=== PATIENT | female | born 1985 | race African-American/Black ===

== ENCOUNTER 2018-03-17 10:49 | Emergency (ER) | payer MEDICARE, MEDICAID ==
[~2018-03-17] VITALS: Ht 167.6 cm; Wt 114.0 kg
[~2018-03-17 10:49] MED LIST: AMLO5TAB4 PO; B6/F1TAB; FERR134T2; GEODON; HYDR-519 PO; TRAM50TA; TRAMADOL; ZIPR20CA2
[2018-03-17] MEDS ORDERED: AZITHROMYCIN 500 MG TABLET PO ONE (11:30)
[2018-03-17] MEDS ORDERED: CEFTRIAXONE SODIUM 250 MG/VIAL IM ONE (11:30)
[2018-03-17] MEDS ORDERED: LIDOCAINE HCL 1% 20ML VIAL (Pyxis) INJ INFIL ONE (11:30)
[2018-03-17] MEDS ORDERED: HYDROCODONE/ACETAMINOPHEN 5/325MG TABLET PO ONE (11:30)
[2018-03-17] MEDS ORDERED: LIDOCAINE HCL/PF 1% 10 MG/ML 5ML VIAL IJ ONE (12:00)
[2018-03-17 12:04] VITALS: BP 115/58
== END 2018-03-17 12:05 | disposition home or self-care (01) ==
LOC: ER 11:31
DX: A64 Unspecified sexually transmitted disease (principal); Z20.2 Contact with and (suspected) exposure to infections with a predominantly sexual mode of transmission; Z76.0 Encounter for issue of repeat prescription; G89.29 Other chronic pain; M54.9 Dorsalgia, unspecified; E66.9 Obesity, unspecified; Z88.0 Allergy status to penicillin; F31.9 Bipolar disorder, unspecified; Z98.51 Tubal ligation status
CPT/HCPCS: 96372; 99283; J0696; J3490

== ENCOUNTER 2018-03-20 22:03 | Emergency (ER) | payer MEDICARE, MEDICAID ==
[~2018-03-20] VITALS: Ht 167.6 cm; Wt 119.0 kg
[2018-03-20 23:35] LABS: CLARITY URINE CLEAR (CLEAR); COLOR URINE YELLOW (YELLOW); KETONES URINE NEGATIVE (NEGATIVE); LEUKOCYTE ESTERASE URINE TRACE (NEGATIVE); NITRITE URINE NEGATIVE (NEGATIVE); OCCULT BLOOD URINE NEGATIVE (NEGATIVE); PROTEIN URINE NEGATIVE (NEGATIVE); SPECIFIC GRAVITY URINE 1.024 (1.005-1.030); UROBILINOGEN URINE 0.2 E.U./dL (0.2-1.0)
[2018-03-21] MEDS ORDERED: CYCLOBENZAPRINE 10MG TABLET PO ONE (01:45)
[2018-03-21] MEDS ORDERED: KETOROLAC 30MG/ML VIAL IM ONE (01:45)
[2018-03-21 02:43] VITALS: BP 124/78
== END 2018-03-21 02:45 | disposition home or self-care (01) ==
LOC: ER 22:03
DX: M54.5 Low back pain (principal); F17.200 Nicotine dependence, unspecified, uncomplicated; Z88.0 Allergy status to penicillin
CPT/HCPCS: 81003; 81025; 96372; 99283; J1885

== ENCOUNTER 2019-01-13 15:47 | Emergency (ER) | payer MEDICARE, MEDICAID ==
[~2019-01-13] VITALS: Ht 167.6 cm; Wt 128.0 kg
[2019-01-13 17:21] LABS: CLARITY URINE CLOUDY (CLEAR); COLOR URINE YELLOW (YELLOW); KETONES URINE NEGATIVE (NEGATIVE); LEUKOCYTE ESTERASE URINE 1+ (NEGATIVE); NITRITE URINE NEGATIVE (NEGATIVE); OCCULT BLOOD URINE NEGATIVE (NEGATIVE); PH URINE 6.5 (4.5-8.0); PROTEIN URINE NEGATIVE (NEGATIVE); SPECIFIC GRAVITY URINE 1.019 (1.005-1.030); UROBILINOGEN URINE 0.2 E.U./dL (0.2-1.0)
[2019-01-13] MEDS ORDERED: FLUCONAZOLE 100MG TABLET PO ONE (23:45)
[2019-01-13] MEDS ORDERED: CEFTRIAXONE SODIUM 250 MG/VIAL IM ONE (23:45)
[2019-01-13] MEDS ORDERED: MORPHINE SULFATE 4 MG/ML CPJ (NOT FOR IM USE) IV ONE (23:45)
[2019-01-13] MEDS ORDERED: AZITHROMYCIN 500 MG TABLET PO ONE (23:45)
[2019-01-13] MEDS ORDERED: KETOROLAC 60MG/2ML VIAL IM ONE (23:45)
[2019-01-14] MEDS ORDERED: ONDANSETRON HCL 4MG/2ML INJ IV STA (00:31)
[2019-01-14] MEDS ORDERED: SODIUM CHLORIDE 0.9% 1,000 ML IV ONE (00:31)
[2019-01-14] MEDS ORDERED: CEFTRIAXONE 1 G PREMIX 50 ML IV ONE (00:45)
[2019-01-14 01:17] LABS: BASOPHILS % 1.4 % (0.0-2.0); EOSINOPHILS % 3.5 % (0.0-5.0); HEMATOCRIT. 36.6 % (36.0-48.0); LYMPHOCYTES % 39.4 % (20.0-50.0); MEAN CORPUSCULAR HEMOGLOBIN 22.9 pg (28.0-32.0); MEAN PLATELET VOLUME 7.9 fl (7.4-10.4); MONOCYTES % 7.1 % (2.0-8.0); NEUTROPHILS % 48.6 % (40.0-76.0); PLATELET 274 x1000/uL (130-400); RED BLOOD CELL COUNT 5.23 mill/uL (4.2-5.4); RED CELL DISTRIBUTION WIDTH 16.8 % (11.6-14.6)
[2019-01-14 01:26] LABS: CHLORIDE 106 mEq/L (98-107)
[2019-01-14] MEDS ORDERED: FLUCONAZOLE 150MG TABLET PO NR (02:00)
[2019-01-14 02:36] VITALS: BP 124/73
[2019-01-14 03:38] LABS: PLATELET ESTIMATE NORMAL
== END 2019-01-14 02:39 | disposition home or self-care (01) ==
LOC: ER 16:13
DX: N12 Tubulo-interstitial nephritis, not specified as acute or chronic (principal); F31.9 Bipolar disorder, unspecified; Z88.0 Allergy status to penicillin; Z98.51 Tubal ligation status
CPT/HCPCS: 36415; 80053; 81003; 81025; 83690; 85025; 96365; 96372; 96375; 99283; J0696; J1885; J2270; J2405; J7030

== ENCOUNTER 2024-07-24 16:50 | Emergency (ER) | payer MEDICAID, MEDICARE ==
[~2024-07-24] VITALS: Ht 167.6 cm; Wt 133.0 kg
[2024-07-24 16:53] VITALS: O2SAT 100
[2024-07-24 17:31] LABS: BASOPHILS % 0.6 % (0.0-2.0); EOSINOPHILS % 4.4 % (0.0-5.0); HEMATOCRIT. 28.9 % (36.0-48.0); HEMOGLOBIN. 9.1 g/dL (12.0-16.0); LYMPHOCYTES % 32.1 % (20.0-50.0); MEAN CORPUSCULAR HEMOGLOBIN 18.5 pg (28.0-32.0); MEAN CORPUSCULAR HGB CONC 31.3 g/dL (31.0-37.0); MEAN PLATELET VOLUME 8.6 fl (7.4-10.4); MONOCYTES % 7.1 % (2.0-8.0); NEUTROPHILS % 55.8 % (40.0-76.0); PLATELET 273 x1000/uL (130-400); WHITE BLOOD COUNT 8.6 x1000/uL (4.5-11.0)
[2024-07-24 17:38] LABS: CHLORIDE 107 mEq/L (98-107); POTASSIUM 3.8 mEq/L (3.5-5.1); SODIUM 137 mEq/L (136-145)
[2024-07-24 17:39] LABS: CARBON DIOXIDE 26 mEq/L (21-32)
[2024-07-24 17:44] LABS: CREATININE 0.9 mg/dL (0.6-1.0); GLUCOSE 94 mg/dL (70-105); UREA NITROGEN BLOOD 11 mg/dL (9-23)
[2024-07-24 17:45] LABS: DIFFERENTIAL COMMENT 1
[2024-07-24 17:46] LABS: ADD RBC MORPHOLOGY YES; ALANINE AMINOTRANSFERASE < 7 IU/L (10-49); ASPARTATE AMINOTRANSFERASE 11 IU/L (<34)
[2024-07-24 17:47] LABS: BILIRUBIN TOTAL 0.2 mg/dL (0.1-1.0); PROTEIN TOTAL 6.9 g/dL (6.0-8.3)
[2024-07-24] MEDS: KETOROLAC 30MG/ML VIAL IM ONE (18:16)
[2024-07-24] MEDS: ACETAMINOPHEN 325MG TABLET PO ONE (18:16)
[2024-07-24 18:33] LABS: BILIRUBIN DIRECT < 0.1 mg/dL (<=3.0); CLARITY URINE CLOUDY (CLEAR); COLOR URINE YELLOW (YELLOW); GLUCOSE URINE NEGATIVE (NEGATIVE); KETONES URINE TRACE (NEGATIVE); LEUKOCYTE ESTERASE URINE 2+ (NEGATIVE); NITRITE URINE NEGATIVE (NEGATIVE); OCCULT BLOOD URINE NEGATIVE (NEGATIVE); PH URINE 6.5 (4.5-8.0); PROTEIN URINE NEGATIVE (NEGATIVE); SPECIFIC GRAVITY URINE 1.021 (1.005-1.030); UROBILINOGEN URINE 0.2 E.U./dL (0.2-1.0)
[2024-07-24 18:40] LABS: UCG SCREEN NEGATIVE
[2024-07-24 18:41] LABS: UCG KIT LOT# 847686
[2024-07-24 18:46] LABS: BACTERIA URINE 2+; RBC URINE 0-2 /hpf (0-2); SQUAMOUS EPITHELIAL CELL URINE 2+ /lpf (RARE/1+)
[2024-07-24 19:07] LABS: MICROCYTOSIS 3+; PLATELET ESTIMATE NORMAL
[2024-07-24 19:08] LABS: ANISOCYTOSIS 2+; HYPOCHROMASIA 2+; OVALOCYTES 1+; TARGET CELLS 1+
[2024-07-24] MEDS: NITROFURANTOIN 100MG M/M CAPSULE PO NR (20:02)
[2024-07-24] MEDS ORDERED: NITR-87 MT (21:57)
[2024-07-24 22:00] VITALS: BP 132/67; PULSE 84; RESP 17; TEMP 36.66960; O2SAT 100
[2024-07-24] MEDS ORDERED: CEPH500C2 MT (22:02)
[2024-07-24] MEDS: CEPHALEXIN 250MG CAPSULE PO ONE (22:20)
== END 2024-07-25 01:52 | disposition home or self-care (01) ==
LOC: ER 16:50
DX: N39.0 Urinary tract infection, site not specified (principal); F31.9 Bipolar disorder, unspecified; Z88.0 Allergy status to penicillin; Z79.899 Other long term (current) drug therapy; Z98.890 Other specified postprocedural states; Z98.51 Tubal ligation status
CPT/HCPCS: 99285; 74176; 80076; 80048; 81003; 81025; 83690; 85025; 86850; 86900; 86901; 36415; 93005; 96372; J1885

== ENCOUNTER 2025-01-09 22:28 | Emergency (ER) | payer MEDICAID, MEDICARE ==
[~2025-01-09] VITALS: Ht 170.2 cm; Wt 132.4 kg
[~2025-01-09 22:28] MED LIST changes: -AMLO5TAB4 PO; +AMLO5TAB5 PO; +CEPH500C2 MT
[2025-01-09 22:36] VITALS: O2SAT 100
[2025-01-09 22:58] LABS: BASOPHILS % 0.8 % (0.0-2.0); DIFFERENTIAL COMMENT 1; EOSINOPHILS % 4.4 % (0.0-5.0); HEMATOCRIT. 29.3 % (36.0-48.0); HEMOGLOBIN. 9.2 g/dL (12.0-16.0); LYMPHOCYTES % 33.2 % (20.0-50.0); MEAN CORPUSCULAR HEMOGLOBIN 17.9 pg (28.0-32.0); MEAN CORPUSCULAR HGB CONC 31.3 g/dL (31.0-37.0); MEAN CORPUSCULAR VOLUME 57.1 fL (81.0-99.0); MEAN PLATELET VOLUME 8.4 fl (7.4-10.4); MONOCYTES % 7.4 % (2.0-8.0); NEUTROPHILS % 54.2 % (40.0-76.0); PLATELET 290 x1000/uL (130-400); RED BLOOD CELL COUNT 5.12 mill/uL (4.2-5.4); RED CELL DISTRIBUTION WIDTH 22.2 % (11.6-14.6)
[2025-01-09 22:59] LABS: ADD RBC MORPHOLOGY YES
[2025-01-09 23:04] VITALS: TEMP 36.9; O2SAT 99
[2025-01-09 23:11] LABS: ANISOCYTOSIS 2+; PLATELET ESTIMATE NORMAL
[2025-01-09 23:13] LABS: HYPOCHROMASIA 1+; MICROCYTOSIS 3+
[2025-01-09 23:16] LABS: CARBON DIOXIDE 28 mEq/L (21-32); CHLORIDE 106 mEq/L (98-107); POTASSIUM 4.3 mEq/L (3.5-5.1); SODIUM 140 mEq/L (136-145)
[2025-01-09 23:17] LABS: CALCIUM 8.9 mg/dL (8.7-10.4)
[2025-01-09 23:21] LABS: CREATININE 0.9 mg/dL (0.6-1.0)
[2025-01-09 23:22] LABS: GLUCOSE 102 mg/dL (70-105); UREA NITROGEN BLOOD 12 mg/dL (9-23)
[2025-01-09 23:23] LABS: ALANINE AMINOTRANSFERASE 19 IU/L (10-49); ALBUMIN 3.7 g/dL (3.2-4.8); ASPARTATE AMINOTRANSFERASE 16 IU/L (<34)
[2025-01-09 23:24] LABS: BILIRUBIN DIRECT < 0.1 mg/dL (<=3.0); BILIRUBIN TOTAL 0.2 mg/dL (0.1-1.0); PROTEIN TOTAL 6.8 g/dL (6.0-8.3)
[2025-01-09 23:41] LABS: CLARITY URINE CLEAR (CLEAR); COLOR URINE DARK YELLOW (YELLOW); GLUCOSE URINE NEGATIVE (NEGATIVE); KETONES URINE NEGATIVE (NEGATIVE); LEUKOCYTE ESTERASE URINE 1+ (NEGATIVE); NITRITE URINE POSITIVE (NEGATIVE); OCCULT BLOOD URINE NEGATIVE (NEGATIVE); PROTEIN URINE NEGATIVE (NEGATIVE); SPECIFIC GRAVITY URINE 1.024 (1.005-1.030)
[2025-01-10 00:14] LABS: HCG SCREEN NEGATIVE
[2025-01-10 01:40] VITALS: BP 172/94; PULSE 74; RESP 16
[2025-01-10] MEDS: KETOROLAC 30MG/ML VIAL IM ONE (01:40)
[2025-01-10] MEDS: CEFTRIAXONE SODIUM 1G VIAL IM ONE (02:00)
[2025-01-10] MEDS ORDERED: LIDOCAINE HCL 1% 20ML VIAL INFIL ONE (02:00)
[2025-01-10 02:12] LABS: SQUAMOUS EPITHELIAL CELL URINE 1+ /lpf (RARE/1+)
[2025-01-10 02:13] LABS: RBC URINE 0-2 /hpf (0-2); WBC URINE 0-2 /hpf (0-2)
[2025-01-10 02:16] LABS: BACTERIA URINE 1+
[2025-01-10] MEDS ORDERED: IBUP-2028 MT (02:44)
[2025-01-10] MEDS ORDERED: CIPR-263 MT (02:44)
== END 2025-01-10 03:51 | disposition home or self-care (01) ==
LOC: ER 22:38
DX: N39.0 Urinary tract infection, site not specified (principal); R10.32 Left lower quadrant pain; Z79.899 Other long term (current) drug therapy; Z86.018 Personal history of other benign neoplasm; Z88.0 Allergy status to penicillin
CPT/HCPCS: 99285; 80076; 80048; 81003; 81025; 84703; 83690; 85025; 36415; 74176; 96372; J1885; J0696; J3490

== ENCOUNTER 2025-03-16 22:34 | Emergency (ER) | payer MEDICARE, MEDICAID ==
[~2025-03-16] VITALS: Ht 167.6 cm; Wt 134.0 kg
[~2025-03-16 22:34] MED LIST changes: +CIPR-263 MT; +IBUP-2028 MT
[2025-03-16 22:52] VITALS: O2SAT 99
[2025-03-16 23:18] LABS: BASOPHILS % 0.7 % (0.0-2.0); EOSINOPHILS % 3.8 % (0.0-5.0); HEMATOCRIT. 28.3 % (36.0-48.0); HEMOGLOBIN. 8.9 g/dL (12.0-16.0); MEAN CORPUSCULAR HEMOGLOBIN 17.8 pg (28.0-32.0); MEAN CORPUSCULAR HGB CONC 31.5 g/dL (31.0-37.0); MEAN CORPUSCULAR VOLUME 56.6 fL (81.0-99.0); MEAN PLATELET VOLUME 8.6 fl (7.4-10.4); NEUTROPHILS % 54.5 % (40.0-76.0); PLATELET 264 x1000/uL (130-400); RED CELL DISTRIBUTION WIDTH 22.1 % (11.6-14.6); WHITE BLOOD COUNT 7.7 x1000/uL (4.5-11.0)
[2025-03-16 23:27] LABS: CARBON DIOXIDE 30 mEq/L (21-32); CHLORIDE 101 mEq/L (98-107); POTASSIUM 3.5 mEq/L (3.5-5.1); SODIUM 138 mEq/L (136-145)
[2025-03-16 23:28] LABS: CALCIUM 9.3 mg/dL (8.7-10.4)
[2025-03-16 23:32] LABS: CREATININE 0.9 mg/dL (0.6-1.0)
[2025-03-16 23:33] LABS: GLUCOSE 105 mg/dL (70-105); UREA NITROGEN BLOOD 10 mg/dL (9-23)
[2025-03-16 23:34] LABS: ALANINE AMINOTRANSFERASE 117 IU/L (10-49); ALBUMIN 3.9 g/dL (3.2-4.8)
[2025-03-16 23:35] LABS: ASPARTATE AMINOTRANSFERASE 146 IU/L (<34); BILIRUBIN DIRECT < 0.1 mg/dL (<=3.0); BILIRUBIN TOTAL 0.2 mg/dL (0.1-1.0)
[2025-03-16 23:39] LABS: CLARITY URINE CLEAR (CLEAR); COLOR URINE YELLOW (YELLOW); GLUCOSE URINE NEGATIVE (NEGATIVE); KETONES URINE NEGATIVE (NEGATIVE); LEUKOCYTE ESTERASE URINE 1+ (NEGATIVE); NITRITE URINE NEGATIVE (NEGATIVE); OCCULT BLOOD URINE NEGATIVE (NEGATIVE); PH URINE >=9.0 (4.5-8.0); PROTEIN URINE NEGATIVE (NEGATIVE); SPECIFIC GRAVITY URINE 1.017 (1.005-1.030); UROBILINOGEN URINE 0.2 E.U./dL (0.2-1.0)
[2025-03-16 23:53] LABS: DIFFERENTIAL COMMENT 1
[2025-03-17 00:14] LABS: SQUAMOUS EPITHELIAL CELL URINE 2+ /lpf (RARE/1+)
[2025-03-17 00:16] LABS: BACTERIA URINE TRACE; RBC URINE 0-2 /hpf (0-2)
[2025-03-17] MEDS: ONDANSETRON 4MG ODT PO ONE (02:01)
[2025-03-17] MEDS: KETOROLAC 30MG/ML VIAL IM ONE (02:02)
[2025-03-17] MEDS: ACETAMINOPHEN 325MG TABLET PO ONE (02:02)
[2025-03-17] MEDS ORDERED: MAG-55 MT (02:14)
[2025-03-17 02:22] VITALS: BP 156/94; PULSE 86; RESP 20; TEMP 36.8; O2SAT 99
== END 2025-03-17 02:23 | disposition home or self-care (01) ==
LOC: ER 22:34
DX: R10.84 Generalized abdominal pain (principal); I10 Essential (primary) hypertension; F31.9 Bipolar disorder, unspecified; F41.9 Anxiety disorder, unspecified; Z79.899 Other long term (current) drug therapy; Z98.890 Other specified postprocedural states; Z88.0 Allergy status to penicillin
CPT/HCPCS: 99285; 80076; 80048; 81003; 81025; 83690; 85025; 36415; 74176; 96372; J1885; Q0162; 99284

== ENCOUNTER 2025-04-11 12:01 | Emergency (ER) | payer MEDICARE, MEDICAID ==
[~2025-04-11] VITALS: Ht 167.6 cm; Wt 135.0 kg
[~2025-04-11 12:01] MED LIST changes: +MAG-55 MT
[2025-04-11 12:07] VITALS: O2SAT 99
[2025-04-11 12:49] LABS: BASOPHILS % 0.7 % (0.0-2.0); EOSINOPHILS % 8.8 % (0.0-5.0); HEMATOCRIT. 28.6 % (36.0-48.0); HEMOGLOBIN. 9.1 g/dL (12.0-16.0); MEAN CORPUSCULAR HEMOGLOBIN 18.3 pg (28.0-32.0); MEAN CORPUSCULAR HGB CONC 31.9 g/dL (31.0-37.0); MEAN CORPUSCULAR VOLUME 57.3 fL (81.0-99.0); MEAN PLATELET VOLUME 8.6 fl (7.4-10.4); MONOCYTES % 8.9 % (2.0-8.0); NEUTROPHILS % 54.6 % (40.0-76.0); PLATELET 247 x1000/uL (130-400); RED BLOOD CELL COUNT 4.99 mill/uL (4.2-5.4); RED CELL DISTRIBUTION WIDTH 22.1 % (11.6-14.6); WHITE BLOOD COUNT 6.1 x1000/uL (4.5-11.0)
[2025-04-11 12:54] LABS: DIFFERENTIAL COMMENT 1
[2025-04-11 12:55] LABS: ADD RBC MORPHOLOGY YES
[2025-04-11 12:59] LABS: CARBON DIOXIDE 27 mEq/L (21-32); CHLORIDE 109 mEq/L (98-107); POTASSIUM 4.3 mEq/L (3.5-5.1); SODIUM 139 mEq/L (136-145)
[2025-04-11 13:04] LABS: CLARITY URINE CLOUDY (CLEAR); COLOR URINE YELLOW (YELLOW); GLUCOSE URINE NEGATIVE (NEGATIVE); KETONES URINE TRACE (NEGATIVE); LEUKOCYTE ESTERASE URINE 2+ (NEGATIVE); NITRITE URINE NEGATIVE (NEGATIVE); OCCULT BLOOD URINE NEGATIVE (NEGATIVE); PH URINE 7.5 (4.5-8.0); PROTEIN URINE 1+ (NEGATIVE); SPECIFIC GRAVITY URINE 1.023 (1.005-1.030)
[2025-04-11 13:05] LABS: ETHANOL BLOOD < 10 mg/dL (<10); GLUCOSE 101 mg/dL (70-105); UREA NITROGEN BLOOD 9 mg/dL (9-23)
[2025-04-11 13:06] LABS: AMMONIA < 17 uMol/L (<32); HCG SCREEN NEGATIVE
[2025-04-11 13:19] LABS: SQUAMOUS EPITHELIAL CELL URINE 2+ /lpf (RARE/1+)
[2025-04-11 13:20] LABS: BACTERIA URINE 2+
[2025-04-11 13:22] LABS: RBC URINE 0-2 /hpf (0-2)
[2025-04-11 13:29] LABS: ANISOCYTOSIS 2+; HYPOCHROMASIA 2+; MICROCYTOSIS 3+; PLATELET ESTIMATE NORMAL
[2025-04-11 13:44] LABS: TROPONIN I HIGH SENSITIVITY < 4 ng/L (3.0-34)
[2025-04-11 13:49] LABS: *AMPHETAMINES SCREEN URINE NEGATIVE (NEGATIVE); *BARBITURATES SCREEN URINE NEGATIVE (NEGATIVE); *BENZODIAZEPINES SCREEN URINE NEGATIVE (NEGATIVE); *COCAINE SCREEN URINE NEGATIVE (NEGATIVE); CANNABINOID URINE SCREEN PRESUMPTIVE POSITIVE (NEGATIVE); ECSTASY MDMA SCREEN URINE NEGATIVE (NEGATIVE); METHADONE URINE SCREEN NEGATIVE (NEGATIVE); OPIATES URINE SCREEN NEGATIVE (NEGATIVE); PHENCYCLIDINE URINE SCREEN NEGATIVE (NEGATIVE)
[2025-04-11] MEDS ORDERED: BENZ200C52 MT (16:07)
[2025-04-11 16:23] VITALS: BP 148/90; PULSE 79; RESP 16; TEMP 36.8; O2SAT 99
[2025-06-16] MEDS ORDERED: METO25TA6 MT ×2 (16:26→16:27)
== END 2025-04-11 16:36 | disposition home or self-care (01) ==
LOC: ER 12:01 → CANBEDREQ 15:32 → ER 16:36
DX: R55 Syncope and collapse (principal); I10 Essential (primary) hypertension; J45.909 Unspecified asthma, uncomplicated; F31.9 Bipolar disorder, unspecified; F41.9 Anxiety disorder, unspecified; Z98.890 Other specified postprocedural states; Z79.899 Other long term (current) drug therapy; Z88.0 Allergy status to penicillin; Z88.6 Allergy status to analgesic agent
CPT/HCPCS: 36415; 71045; 80048; 80305; 80320; 81003; 82140; 84484; 84703; 85025; 93005; 99284; G0480

== ENCOUNTER 2025-05-31 20:45 | Emergency (ER) | payer MEDICARE, MEDICAID ==
[~2025-05-31] VITALS: Ht 170.2 cm; Wt 132.0 kg
[~2025-05-31 20:45] MED LIST changes: +BENZ200C52 MT
[2025-05-31 21:11] VITALS: O2SAT 99
[2025-05-31 21:40] LABS: BASOPHILS % 1.1 % (0.0-2.0); EOSINOPHILS % 4.5 % (0.0-5.0); HEMATOCRIT. 29.4 % (36.0-48.0); HEMOGLOBIN. 9.2 g/dL (12.0-16.0); LYMPHOCYTES % 28.7 % (20.0-50.0); MEAN PLATELET VOLUME 8.5 fl (7.4-10.4); MONOCYTES % 5.4 % (2.0-8.0); NEUTROPHILS % 60.3 % (40.0-76.0); PLATELET 287 x1000/uL (130-400); RED BLOOD CELL COUNT 5.06 mill/uL (4.2-5.4); RED CELL DISTRIBUTION WIDTH 22.1 % (11.6-14.6)
[2025-05-31 21:42] VITALS: TEMP 37
[2025-05-31 21:48] LABS: ADD RBC MORPHOLOGY YES
[2025-05-31 22:08] LABS: CREATININE 1.1 mg/dL (0.6-1.0); UREA NITROGEN BLOOD 10 mg/dL (9-23)
[2025-05-31 22:25] LABS: PLATELET ESTIMATE NORMAL
[2025-05-31 23:13] LABS: ETHANOL BLOOD < 10 mg/dL (<10)
[2025-05-31 23:14] LABS: ASPARTATE AMINOTRANSFERASE 13 IU/L (<34); BILIRUBIN DIRECT 0.1 mg/dL (<=3.0)
[2025-05-31 23:15] LABS: BILIRUBIN TOTAL 0.3 mg/dL (0.1-1.0); HCG SCREEN NEGATIVE; PROTEIN TOTAL 7.1 g/dL (6.0-8.3)
[2025-05-31] MEDS: SODIUM CHLORIDE 0.9% 1,000 ML IV ONE (23:17)
[2025-05-31] MEDS: ONDANSETRON HCL 4MG/2ML INJ IV ONE (23:18)
[2025-05-31] MEDS: PANTOPRAZOLE SODIUM 40 MG/VIAL IV ONE (23:18)
[2025-05-31] MEDS: MORPHINE SULFATE 4 MG/ML INJ (FOR IV/IM USE) IV ONE (23:18)
[2025-06-01 00:35] LABS: CLARITY URINE CLOUDY (CLEAR); COLOR URINE YELLOW (YELLOW); GLUCOSE URINE NEGATIVE (NEGATIVE); KETONES URINE NEGATIVE (NEGATIVE); LEUKOCYTE ESTERASE URINE 2+ (NEGATIVE); NITRITE URINE NEGATIVE (NEGATIVE); OCCULT BLOOD URINE NEGATIVE (NEGATIVE); PH URINE 7.0 (4.5-8.0); PROTEIN URINE TRACE (NEGATIVE); SPECIFIC GRAVITY URINE 1.022 (1.005-1.030); UROBILINOGEN URINE 1.0 E.U./dL (0.2-1.0)
[2025-06-01 00:47] LABS: *AMPHETAMINES SCREEN URINE NEGATIVE (NEGATIVE); *BARBITURATES SCREEN URINE NEGATIVE (NEGATIVE); *COCAINE SCREEN URINE NEGATIVE (NEGATIVE); CANNABINOID URINE SCREEN PRESUMPTIVE POSITIVE (NEGATIVE); ECSTASY MDMA SCREEN URINE NEGATIVE (NEGATIVE); METHADONE URINE SCREEN NEGATIVE (NEGATIVE); OPIATES URINE SCREEN PRESUMPTIVE POSITIVE (NEGATIVE); PHENCYCLIDINE URINE SCREEN NEGATIVE (NEGATIVE)
[2025-06-01 00:54] LABS: BACTERIA URINE 1+; RBC URINE 0-2 /hpf (0-2); SQUAMOUS EPITHELIAL CELL URINE FEW /lpf (RARE/1+)
[2025-06-01] MEDS ORDERED: CEPH250C2 MT (00:57)
[2025-06-01] MEDS ORDERED: FERR1TAB91 MT (00:57)
[2025-06-01] MEDS: CEFTRIAXONE 1GM/50ML 50 ML IV ONE (01:08)
[2025-06-01] MEDS: KETOROLAC 15MG/ML VIAL IV ONE (01:08)
[2025-06-01 01:18] LABS: *BENZODIAZEPINES SCREEN URINE NEGATIVE (NEGATIVE)
[2025-06-01 01:24] VITALS: BP 157/90; PULSE 75; RESP 16; O2SAT 98
== END 2025-06-01 01:33 | disposition home or self-care (01) ==
LOC: ER 20:45
DX: N39.0 Urinary tract infection, site not specified (principal); D64.9 Anemia, unspecified; N20.0 Calculus of kidney; J45.909 Unspecified asthma, uncomplicated; Z79.899 Other long term (current) drug therapy; Z88.0 Allergy status to penicillin; Z88.6 Allergy status to analgesic agent
CPT/HCPCS: 80076; 80048; 81025; 80320; 84703; 83690; 83735; 85025; 36415; 74176; 76830; 76856; 93005; 96361; 96375 ×2; 99285; 80305; 81003; 96365; J2405; J2470; J2270; J7030; J0696; J1885; G0480

== ENCOUNTER 2025-07-21 02:16 | Emergency (ER) | payer MEDICARE, MEDICAID ==
[~2025-07-21] VITALS: Ht 170.2 cm; Wt 127.0 kg
[~2025-07-21 02:16] MED LIST changes: -AMLO5TAB5 PO; +AMLO5TAB6 PO; -CEPH500C2 MT; -CIPR-263 MT; +FERR1TAB91 MT; -IBUP-2028 MT; +METO25TA6 MT
[2025-07-21 02:29] VITALS: O2SAT 100
[2025-07-21 02:53] LABS: CLARITY URINE TURBID (CLEAR); COLOR URINE DARK YELLOW (YELLOW); GLUCOSE URINE NEGATIVE (NEGATIVE); KETONES URINE TRACE (NEGATIVE); LEUKOCYTE ESTERASE URINE 1+ (NEGATIVE); NITRITE URINE NEGATIVE (NEGATIVE); OCCULT BLOOD URINE NEGATIVE (NEGATIVE); PH URINE 6.5 (4.5-8.0); PROTEIN URINE 1+ (NEGATIVE); SPECIFIC GRAVITY URINE 1.037 (1.005-1.030); UROBILINOGEN URINE 1.0 E.U./dL (0.2-1.0)
[2025-07-21 03:50] LABS: BASOPHILS % 1.2 % (0.0-2.0); EOSINOPHILS % 4.1 % (0.0-5.0); HEMATOCRIT. 28.3 % (36.0-48.0); HEMOGLOBIN. 8.9 g/dL (12.0-16.0); LYMPHOCYTES % 28.8 % (20.0-50.0); MEAN PLATELET VOLUME 8.6 fl (7.4-10.4); MONOCYTES % 7.1 % (2.0-8.0); NEUTROPHILS % 58.8 % (40.0-76.0); PLATELET 270 x1000/uL (130-400); RED BLOOD CELL COUNT 4.87 mill/uL (4.2-5.4); RED CELL DISTRIBUTION WIDTH 22.5 % (11.6-14.6)
[2025-07-21 03:55] LABS: ADD RBC MORPHOLOGY YES
[2025-07-21 04:03] LABS: CREATININE 0.9 mg/dL (0.6-1.0); UREA NITROGEN BLOOD 8 mg/dL (9-23)
[2025-07-21 04:05] LABS: ASPARTATE AMINOTRANSFERASE 9 IU/L (<34); BILIRUBIN DIRECT 0.1 mg/dL (<=3.0); BILIRUBIN TOTAL 0.4 mg/dL (0.1-1.0); PROTEIN TOTAL 6.5 g/dL (6.0-8.3)
[2025-07-21 04:12] LABS: AMORPHOUS SEDIMENT URINE 1+ /lpf; BACTERIA URINE TRACE; RBC URINE NONE SEEN /hpf (0-2); SQUAMOUS EPITHELIAL CELL URINE 3+ /lpf (RARE/1+)
[2025-07-21] MEDS: ONDANSETRON HCL 4MG/2ML INJ IV NR (05:04)
[2025-07-21] MEDS: KETOROLAC 15MG/ML VIAL IV ONE (05:05)
[2025-07-21] MEDS: MORPHINE SULFATE 4 MG/ML INJ (FOR IV/IM USE) IV NR (05:05)
[2025-07-21] MEDS: SODIUM CHLORIDE 0.9% 1,000 ML IV ONE (05:05)
[2025-07-21 05:40] LABS: PLATELET ESTIMATE NORMAL
[2025-07-21 06:24] VITALS: BP 169/93; PULSE 80; RESP 16; TEMP 36.9; O2SAT 100
== END 2025-07-21 08:07 | disposition admitted as inpatient to this hospital (09) ==
LOC: ER 02:16 → EDBEDREQTM 05:13 → EDBEDREQ 05:13 → ER 08:07 → CMPBEDREQ 10:21
DX: R10.9 Unspecified abdominal pain (principal); J45.909 Unspecified asthma, uncomplicated; D64.9 Anemia, unspecified; Z79.899 Other long term (current) drug therapy; Z88.0 Allergy status to penicillin; Z98.890 Other specified postprocedural states
CPT/HCPCS: 36415; 74176; 80048; 80076; 81003; 85025; 96361; 96374; 96375; 99285; J2270; J2405; J7030

== ENCOUNTER 2025-08-16 22:53 | Emergency (ER) | payer MEDICARE, MEDICAID ==
[~2025-08-16] VITALS: Ht 170.2 cm; Wt 123.0 kg
[2025-08-16 22:58] VITALS: O2SAT 100
[2025-08-16 23:00] VITALS: BP 145/89; PULSE 98; RESP 18; TEMP 37; O2SAT 100
== END 2025-08-17 00:09 | disposition home or self-care (01) ==
LOC: ER 22:53
DX: J02.9 Acute pharyngitis, unspecified (principal); J45.909 Unspecified asthma, uncomplicated; Z88.0 Allergy status to penicillin; Z79.899 Other long term (current) drug therapy
CPT/HCPCS: 99282

== ENCOUNTER 2025-08-25 02:09 | Emergency (ER) | payer MEDICARE, MEDICAID ==
[~2025-08-25] VITALS: Ht 167.6 cm; Wt 125.0 kg
[2025-08-25 02:14] VITALS: O2SAT 100
[2025-08-25] MEDS ORDERED: CYCL10TA21 MT (03:18)
[2025-08-25 03:30] VITALS: BP 138/91; PULSE 85; RESP 19; TEMP 36.8; O2SAT 100
[2025-08-25] MEDS: KETOROLAC 30MG/ML VIAL IM ONE (03:30)
[2025-08-25] MEDS: CYCLOBENZAPRINE 10MG TABLET PO ONE (03:31)
== END 2025-08-25 03:37 | disposition home or self-care (01) ==
LOC: ER 02:09
DX: R25.2 Cramp and spasm (principal); J45.909 Unspecified asthma, uncomplicated; D64.9 Anemia, unspecified; Z79.899 Other long term (current) drug therapy; Z88.0 Allergy status to penicillin; Z98.890 Other specified postprocedural states
CPT/HCPCS: 99283; 81025; 96372; J1885

== ENCOUNTER 2025-09-04 01:13 | Emergency (ER) | payer MEDICARE, MEDICAID ==
[~2025-09-04] VITALS: Ht 170.2 cm; Wt 125.0 kg
[~2025-09-04 01:13] MED LIST changes: +CYCL10TA21 MT
[2025-09-04 01:42] VITALS: TEMP 36.8; O2SAT 100
[2025-09-04] MEDS: ACETAMINOPHEN WITH CODEINE 300/30MG TABLET PO ONE (02:45)
[2025-09-04 02:46] LABS: ASPARTATE AMINOTRANSFERASE 11 IU/L (<34); BILIRUBIN DIRECT 0.1 mg/dL (<=3.0); BILIRUBIN TOTAL 0.3 mg/dL (0.1-1.0); PROTEIN TOTAL 6.7 g/dL (6.0-8.3)
[2025-09-04 03:31] LABS: CLARITY URINE TURBID (CLEAR); COLOR URINE YELLOW (YELLOW); GLUCOSE URINE NEGATIVE (NEGATIVE); KETONES URINE NEGATIVE (NEGATIVE); LEUKOCYTE ESTERASE URINE 2+ (NEGATIVE); NITRITE URINE NEGATIVE (NEGATIVE); OCCULT BLOOD URINE NEGATIVE (NEGATIVE); PH URINE 8.0 (4.5-8.0); PROTEIN URINE 1+ (NEGATIVE); SPECIFIC GRAVITY URINE 1.033 (1.005-1.030); UROBILINOGEN URINE 1.0 E.U./dL (0.2-1.0)
[2025-09-04 03:36] LABS: BASOPHILS % 0.6 % (0.0-2.0); EOSINOPHILS % 4.1 % (0.0-5.0); HEMATOCRIT. 28.5 % (36.0-48.0); HEMOGLOBIN. 8.8 g/dL (12.0-16.0); LYMPHOCYTES % 27.3 % (20.0-50.0); MEAN PLATELET VOLUME 8.8 fl (7.4-10.4); MONOCYTES % 7.5 % (2.0-8.0); NEUTROPHILS % 60.5 % (40.0-76.0); PLATELET 298 x1000/uL (130-400); RED BLOOD CELL COUNT 4.76 mill/uL (4.2-5.4); RED CELL DISTRIBUTION WIDTH 23.0 % (11.6-14.6)
[2025-09-04] MEDS ORDERED: NITR-87 MT (03:54)
[2025-09-04] MEDS ORDERED: IBUP-1455 MT (03:54)
[2025-09-04 03:56] LABS: ADD RBC MORPHOLOGY YES
[2025-09-04 03:57] LABS: CREATININE 0.8 mg/dL (0.6-1.0)
[2025-09-04 03:58] LABS: UREA NITROGEN BLOOD 8 mg/dL (9-23)
[2025-09-04] MEDS ORDERED: FERR324T4 MT (04:07)
[2025-09-04] MEDS ORDERED: ACET-2708 MT (04:07)
[2025-09-04] MEDS: ONDANSETRON HCL 4MG/2ML INJ IM ONE (04:14)
[2025-09-04] MEDS: POTASSIUM CHLORIDE 20MEQ/PACKET PO ONE (04:19)
[2025-09-04 04:21] VITALS: BP 151/87; PULSE 85; RESP 16; O2SAT 98
[2025-09-04 04:37] LABS: HCG SCREEN NEGATIVE
[2025-09-04 06:04] LABS: PLATELET ESTIMATE NORMAL
[2025-09-04 06:21] LABS: SQUAMOUS EPITHELIAL CELL URINE 3+ /lpf (RARE/1+)
[2025-09-04 06:23] LABS: RBC URINE 0-2 /hpf (0-2)
[2025-09-04 06:24] LABS: BACTERIA URINE 1+
== END 2025-09-04 04:27 | disposition home or self-care (01) ==
LOC: ER 01:13
DX: D50.0 Iron deficiency anemia secondary to blood loss (chronic) (principal); R10.30 Lower abdominal pain, unspecified; N39.0 Urinary tract infection, site not specified; E87.6 Hypokalemia; J45.909 Unspecified asthma, uncomplicated; Z79.899 Other long term (current) drug therapy; Z88.0 Allergy status to penicillin
CPT/HCPCS: 36415; 76830; 76856; 80048; 80076; 81003; 81025; 84703; 85025; 99284; J2405

== ENCOUNTER 2025-09-08 04:58 | Emergency (ER) | payer MEDICARE, MEDICAID ==
[~2025-09-08] VITALS: Ht 170.2 cm; Wt 125.0 kg
[~2025-09-08 04:58] MED LIST changes: +ACET-2708 MT; +FERR324T4 MT; +NITR-87 MT
[2025-09-08 05:11] VITALS: TEMP 37.1; O2SAT 100
[2025-09-08 05:45] LABS: BASOPHILS % 0.6 % (0.0-2.0); EOSINOPHILS % 3.8 % (0.0-5.0); HEMATOCRIT. 27.9 % (36.0-48.0); HEMOGLOBIN. 8.6 g/dL (12.0-16.0); LYMPHOCYTES % 22.6 % (20.0-50.0); MEAN PLATELET VOLUME 8.4 fl (7.4-10.4); MONOCYTES % 8.2 % (2.0-8.0); NEUTROPHILS % 64.8 % (40.0-76.0); PLATELET 275 x1000/uL (130-400); RED BLOOD CELL COUNT 4.66 mill/uL (4.2-5.4); RED CELL DISTRIBUTION WIDTH 22.3 % (11.6-14.6)
[2025-09-08 05:48] LABS: ADD RBC MORPHOLOGY YES
[2025-09-08 05:49] LABS: CREATININE 0.8 mg/dL (0.6-1.0); UREA NITROGEN BLOOD 12 mg/dL (9-23)
[2025-09-08 05:50] LABS: TROPONIN I HIGH SENSITIVITY < 4 ng/L (3.0-34)
[2025-09-08 05:51] LABS: ASPARTATE AMINOTRANSFERASE 10 IU/L (<34); BILIRUBIN DIRECT < 0.1 mg/dL (<=3.0); BILIRUBIN TOTAL 0.2 mg/dL (0.1-1.0); PROTEIN TOTAL 6.8 g/dL (6.0-8.3)
[2025-09-08 06:25] LABS: HCG SCREEN NEGATIVE
[2025-09-08] MEDS: ONDANSETRON HCL 4MG/2ML INJ IV ONE (06:53)
[2025-09-08] MEDS: MAGNESIUM/ALUMINUM HYDROXIDE/SIMETHICONE 30ML UDC PO ONE (06:53)
[2025-09-08] MEDS: KETOROLAC 15MG/ML VIAL IV ONE (06:53)
[2025-09-08] MEDS: FAMOTIDINE 20MG/2ML VIAL IV ONE (06:54)
[2025-09-08] MEDS: FAMOTIDINE 20MG TABLET PO ONE (07:02)
[2025-09-08 07:08] LABS: CLARITY URINE CLOUDY (CLEAR); COLOR URINE YELLOW (YELLOW); GLUCOSE URINE NEGATIVE (NEGATIVE); KETONES URINE NEGATIVE (NEGATIVE); LEUKOCYTE ESTERASE URINE 1+ (NEGATIVE); NITRITE URINE NEGATIVE (NEGATIVE); OCCULT BLOOD URINE NEGATIVE (NEGATIVE); PH URINE 6.0 (4.5-8.0); PROTEIN URINE TRACE (NEGATIVE); SPECIFIC GRAVITY URINE 1.026 (1.005-1.030); UROBILINOGEN URINE 1.0 E.U./dL (0.2-1.0)
[2025-09-08 07:53] VITALS: TEMP 98.7
[2025-09-08 08:07] LABS: SQUAMOUS EPITHELIAL CELL URINE 2+ /lpf (RARE/1+)
[2025-09-08 08:15] LABS: BACTERIA URINE 2+; RBC URINE 0-2 /hpf (0-2)
[2025-09-08 08:20] LABS: TROPONIN I HIGH SENSITIVITY < 4 ng/L (3.0-34)
[2025-09-08] MEDS ORDERED: TOPUD PO (08:36)
[2025-09-08] MEDS ORDERED: ONDA4TAB50 PO (08:36)
[2025-09-08 08:56] VITALS: BP 158/90; PULSE 82; RESP 18; O2SAT 100
[2025-09-08 11:17] LABS: PLATELET ESTIMATE NORMAL
== END 2025-09-08 08:57 | disposition home or self-care (01) ==
LOC: ER 04:58 → CANBEDREQ 08:57
DX: R10.13 Epigastric pain (principal); R07.89 Other chest pain; J45.909 Unspecified asthma, uncomplicated; D64.9 Anemia, unspecified; Z79.899 Other long term (current) drug therapy; Z98.891 History of uterine scar from previous surgery; Z88.0 Allergy status to penicillin
CPT/HCPCS: 99285; 96374; 76705; 96375; 71045; 80076; 80048; 81003; 84703; 83690; 85025; 84484; 36415; 93005; J1885; J1308; J2405